=== PATIENT | female | born 2005 | race Caucasian/White ===

== ENCOUNTER → 2023-02-13 14:01 | Outpatient (CLI) | payer BC, SELFPAY ==
[2023-02-13 14:30] LABS: Basophils % 0.6 % (0.1-2.0); Eosinophils # 0.1 K/mm3 (0.0-0.4); Eosinophils % 2.2 % (0.1-12.0); Hematocrit 36.6 % (37.0-47.0); Hemoglobin 12.5 g/dL (12.2-16.2); Lymphocytes # 1.8 K/mm3 (0.7-4.5); Lymphocytes % 33.7 % (10-50); Mean Corpuscular HGB Conc 34.1 g/dL (31.8-35.4); Mean Corpuscular Hemoglobin 25.5 pg (27.0-31.2); Mean Corpuscular Volume 74.9 fl (81-99); Mean Platelet Volume 7.3 fl (7.4-10.4); Monocytes # 0.3 K/mm3 (0.1-1.0); Monocytes % 5.9 % (1.7-9.3); Neutrophils % 57.6 % (37.0-80.0); Platelet Count 430 K/mm3 (142-424); Red Blood Count 4.89 M/mm3 (4.20-5.40); White Blood Count 5.2 K/mm3 (4.5-13.0)
[2023-02-13 16:39] LABS: Thyroid Stimulating Hormone 0.48 uIU/mL (0.465-4.68)
== END ==
PROVIDERS: PCP Family Medicine; Visit Provider Obstetrics & Gynecology
DX: N93.9 Abnormal uterine and vaginal bleeding, unspecified (principal)
CPT/HCPCS: 36415; 84443; 85025

== ENCOUNTER 2024-02-09 09:46 | Emergency (ER) | payer BC, SELFPAY ==
[2024-02-09 09:47] VITALS: BP 119/85; PULSE 80; RESP 18; TEMP 37.1; O2SAT 99; BMI 40.7
--- NOTE | 2024-02-09 10:08 | HMH.EDGENADL ---
Discharge Plan Disposition Patient Disposition: Home, Self-Care Condition: Good Prescriptions Prescriptions: New ketorolac 10 mg tablet 10 mg PO Q8H PRN (Reason: pain) 5 Days Qty: 10 0RF No Action albuterol sulfate 90 mcg/actuation HFA aerosol inhaler 2 puff inhalation Q6H PRN Tyblume 0.1 mg- 20 mcg tablet,chewable 1 tab PO DAILY Qty: 84 3RF Referrals Follow up/Referrals: Rod Domingo [Primary Care Provider] - See instructions Activity Restrictions/Add. Instructions Additional Instructions/Restrictions: As we discussed, it appears that your pain, based on the ultrasound imaging, is due to a ovarian cyst on your left side. That is likely, based on the ultrasound, functional in nature remaining is simply related to your menstrual cycle. If this pain persists, changes in character, does not resolve, please return to the emergency department. Please return with any other new or worsening symptoms. Clinical Impressions Clinical Impression: Ovarian cyst Instructions Patient Instructions: DI for Acute Abdominal Pain Print Language Print Language: American Discharge ED Provider: Renard Boswell Adult HPI General Chief complaint: Abdominal Pain Stated complaint: abd cramps, back pain Time Seen by Provider: 02/09/24 10:07 Mode of Arrival: Ambulatory Source of Information: Patient Limitations: No Limitations Description of Symptoms (Recalled from ER Triage Doc. by RN): pt is here today for lower abd pain that started this morning, pt complains of nausea but denies any urinary or bowel mvmt issues. pt started her period on monday and has hx of ovarian cyst but hasnt had abd surgeries History of Present Illness HPI narrative: The patient presents with a chief complaint of abdominal pain and back pain. The back pain has been present for three days, and the abdominal pain started this morning on the left side, eventually spreading to the entire lower abdomen. The pain is constant and worsens when sitting. The patient has not experienced this type of pain before. The back pain is primarily located in the lower middle back and spreads to the hip. The abdominal pain is more severe on the left side. The patient reports having chills but is unsure about having a fever. She also feels nauseous but has not experienced any vomiting. The patient denies any pain with urination or bowel movements. She had severe cramps yesterday, which she attributes to her period, which started on Monday or Monday. The patient is currently bleeding due to her period. The pain became particularly intense when the patient got out of bed and sat down to drive. The patient has found a specific sitting position that minimizes the pain. There is no pain spreading down the legs beyond the hip area. The patient has a history of ovarian cysts but states that the current pain is more severe than previous episodes. She has not had any kidney stones or family history of kidney stones. The patient is on control pills and does not take any other medications. Please note that above description of symptoms, in this electronic medical record under categorization of recalled from ER triage doctor by RN are reflective of an initial nursing assessment, however, is not reflective of my full history and physical exam that was personally taken and clarified. Consequentially, this preceding description of symptoms, which may include the patient's categorized chief complaint in the EMR, do not reflect my personal clinical impression, and the ultimate description of history of present illness and patient stated complaints should be deferred to this section of the note. Unless stated otherwise or congruent with this section of the note, additional signs, symptoms, or incongruence should be interpreted as inaccurate with my clinical impression. Related Data Home Medications ?Medication ?Instructions ?Recorded ?Confirmed albuterol sulfate 90 mcg/actuation 2 puff inhalation Q6H PRN 02/13/23 02/13/23 aerosol inhaler Previous Rx's ?Medication ?Instructions ?Recorded levonorgestrel 0.1 mg-ethinyl 1 tab PO DAILY #84 tabs 05/10/23 estradiol 20 mcg chewable tablet (Tyblume) ketorolac 10 mg tablet 10 mg PO Q8H PRN pain 5 days #10 02/09/24 tabs Allergies Allergy/AdvReac Type Severity Reaction Status Date / Time azithromycin (From ZITHROMAX) Allergy Mild I-HIVES Verified 02/09/24 11:26 [facility] Disclaimer: The information contained in this section may have been updated after the patient was seen, as this information can be updated by other users. Medical History Abnormal uterine bleeding Dysmenorrhea Menorrhagia Right wrist injury Surgical History History of tonsillectomy and adenoidectomy Family History Other FHx: mental illness Social History Smoking Status: Current every day smoker alcohol intake: never substance use type: denies use current occupational status: employed Travel in the last 8 weeks: None ROS Obtained: Yes other As per HPI Physical Exam General General appearance: alert and in no apparent distress Head Head exam: atraumatic and normocephalic Eye Eye exam: Present normal appearance Neck Neck exam: Present normal inspection Chest Chest inspection: Present normal inspection and symmetric chest wall rise Respiratory Respiratory exam: Present normal lung sounds bilaterally; Absent respiratory distress Cardiovascular Cardiovascular exam: Present regular rate and normal rhythm Abdominal Exam Abdominal exam: Present soft Neurological Exam Neurological exam: Present alert and oriented X3 Psychiatric Psychiatric exam: Present normal affect and normal mood Skin Skin exam: Present warm and dry Other Other exam information: No focal abdominal tenderness to palpation Medical Decision Making Medical Records Medical records reviewed: Yes I reviewed the patient's medical records. Screening: Per USPSTF and CDC recommendations, given the prevalence of disease in our region, it is our hospital?s policy to screen for HIV and viral Hepatitis for all patients aged 18 and over and those with ongoing risk factors. [place] Inquiry Pt receiving controlled substance: No Vital Signs: 02/09/24 09:47 02/09/24 11:30 02/09/24 12:00 Temperature 98.8 F Temperature Source Oral Pulse Rate 69 83 Pulse Rate [Right Radial] 80 Respiratory Rate 18 Blood Pressure 149/99 H 143/73 H Blood Pressure [Right Arm] 119/85 Blood Pressure Mean Blood Pressure Mean [Right Arm] 96 Blood Pressure Source Blood Pressure Position 02 Sat by Pulse Oximetry 99 98 98 Oxygen Delivery Method Room Air 02/09/24 12:30 02/09/24 13:07 Temperature 98.8 F Temperature Source Oral Pulse Rate 63 63 Pulse Rate [Right Radial] Respiratory Rate 18 Blood Pressure 130/62 130/62 Blood Pressure [Right Arm] Blood Pressure Mean 87 Blood Pressure Mean [Right Arm] Blood Pressure Source Automatic Cuff Blood Pressure Position Sitting 02 Sat by Pulse Oximetry 98 Oxygen Delivery Method Room Air Lab Data Lab Results 02/09/24 09:58: WBC 6.7, RBC 5.21, Hgb 14.2, Hct 41.8, MCV 80.3 L, MCH 27.3, MCHC 33.9, RDW 14.3, Plt Count 404, MPV 7.4, Neut % (Auto) 70.9, Lymph % (Auto) 21.0, Orange % (Auto) 4.4, Eos % (Auto) 2.7, Baso % (Auto) 0.9, Neut # (Auto) 4.7, Lymph # (Auto) 1.4, Orange # (Auto) 0.3, Eos # (Auto) 0.2, Baso # (Auto) 0.1, Sodium 139, Potassium 4.1, Chloride 106, Carbon Dioxide 22, Anion Gap 15.1 H, BUN 11, Creatinine 0.70, Estimated Creat Clear 211, Estimated GFR 107, Est GFR ( Amer) 129, Glucose 123 H, Calcium 9.3, Total Bilirubin 0.9, AST 31, ALT 33, Alkaline Phosphatase 48, Total Protein 7.7, Albumin 4.5, Globulin 3.2, Albumin/Globulin Ratio 1.4, TSH 0.89, Free T4 0.86, Serum HCG, Qual Negative, Urine Color [place], Urine Appearance Cloudy, Urine pH 6.5, Ur Specific [place] 1.015, Urine Protein Negative, Urine Glucose (UA) Negative, Urine Ketones Negative, Urine Blood 3+ A, Urine Nitrate Negative, Urine Bilirubin 1+ A, Urine Urobilinogen 0.2, Ur Leukocyte Esterase Trace, Urine RBC 50-100, Urine WBC Occasional, Ur Squamous Epith Cells 3-5, Urine Bacteria None 02/09/24 09:58 02/09/24 09:58 Orders (Tests/Meds): ED MEDICATIONS Discontinued Medications Generic Name Dose Route Start Last Admin Trade Name Freq PRN Reason Stop Dose Admin Ketorolac Tromethamine 15 mg 02/09/24 10:19 02/09/24 11:26 Ketorolac 30mg/Ml Vial IV 02/09/24 10:20 15 mg ONCE ONE Administration Sodium Chloride 10 ml 02/09/24 10:18 Sodium Chloride 0.9% 10ml Flush Syringe IV 03/10/24 10:17 NEEDED PRN Maintain IV Site ORDERS Category Date Time Status US transvaginal Stat Exams 02/09/24 10:19 Completed CBC w/Auto Diff [Complete Blood Count Auto Diff] Stat Lab 02/09/24 09:58 Completed CMP [Comprehensive Metabolic Panel] Stat Lab 02/09/24 09:58 Completed Free T4 (Free Thyroxine) Stat Lab 02/09/24 09:58 Completed HCG Qualitative, Serum Stat Lab 02/09/24 09:58 Completed TSH [Thyroid Stimulating Hormone] Stat Lab 02/09/24 09:58 Completed Urinalysis and Microscopic Stat Lab 02/09/24 09:58 Completed Medical Decision Narrative: Patient with history and exam per above presenting for evaluation of abdominal pain, dysuria Diagnoses considered include cystitis, pyelonephritis, urolithiasis, no acute evidence of acute surgical abdominal pathology at this time. ED workup and treatment included: ED MEDICATIONS Discontinued Medications Generic Name Dose Route Start Last Admin Trade Name Freq PRN Reason Stop Dose Admin Ketorolac Tromethamine 15 mg 02/09/24 10:19 02/09/24 11:26 Ketorolac 30mg/Ml Vial IV 02/09/24 10:20 15 mg ONCE ONE Administration Sodium Chloride 10 ml 02/09/24 10:18 Sodium Chloride 0.9% 10ml Flush Syringe IV 03/10/24 10:17 NEEDED PRN Maintain IV Site ORDERS Category Date Time Status US transvaginal Stat Exams 02/09/24 10:19 Completed CBC w/Auto Diff [Complete Blood Count Auto Diff] Stat Lab 02/09/24 09:58 Completed CMP [Comprehensive Metabolic Panel] Stat Lab 02/09/24 09:58 Completed Free T4 (Free Thyroxine) Stat Lab 02/09/24 09:58 Completed HCG Qualitative, Serum Stat Lab 02/09/24 09:58 Completed TSH [Thyroid Stimulating Hormone] Stat Lab 02/09/24 09:58 Completed Urinalysis and Microscopic Stat Lab 02/09/24 09:58 Completed Labs were independently interpreted by me, significant for hematuria, no bacteriuria, occasional pyuria [id number] ultrasound performed revealing no hydronephrosis bilaterally. Patient reports improvement symptoms upon repeat evaluation. After shared decision making we will not proceed with any further workup at this time, low posttest probability of significant urolithiasis if that is etiology precipitating chief complaint today. I discussed my clinical impression with patient and answered all questions. At this time, the evidence for any other entities in the differential is insufficient to warrant any further testing or ED observation. This was explained to the patient. The patient was advised that persistent or worsening symptoms require further evaluation. Critical Care Critical Care Time Critical Care Time: No
--- NOTE | 2024-02-09 10:19 | US_ITS ---
PROCEDURE INFORMATION: Exam: US Pelvis, Transvaginal, Non-Obstetric Exam date and time: 02/09/2024 10:57 AM Age: 18 years old Clinical indication: Pelvic pain; Additional info: L sides lower abd pain, vaginal bleeding TECHNIQUE: Imaging protocol: Real-time transvaginal pelvic (non-obstetric) ultrasound with image documentation. Transvaginal imaging was used for better evaluation of the endometrium, adnexa, and/or cervix. COMPARISON: No relevant prior studies available. FINDINGS: Uterus is anteverted and unremarkable overall size, contour measuring 7.8 x 4.2 x 5.0 cm. No uterine masses or textural changes within the myometrium. Endometrium is homogeneous mildly thickened measuring 1.2 cm in thickness. Cervix is unremarkable. Right ovary is unremarkable measuring 2.7 x 2.3 x 1.4 cm. Normal Doppler flow.. No adnexal mass. Left ovary is not significantly enlarged measuring 3.1 x 3.2 x 2.5 cm. 2.0 x 1.8 cm mildly complex cystic structure that appears to be arising from the left ovary HD patient status probably functional in nature. Normal Doppler flow. No free fluid seen in the cul-de-sac. IMPRESSION: 1. Mildly thickened endometrial lining is otherwise unremarkable in appearance. 2. 2.1 cm mildly complex left ovarian cyst presumably functional in nature.
[2024-02-09 10:26] LABS: Microscopic, Urine URINE MICROSCOPIC (MICROSCOPIC)
[2024-02-09 10:30] LABS: Basophils # 0.1 K/mm3 (0-0.2); Basophils % 0.9 % (0.1-2.0); Eosinophils # 0.2 K/mm3 (0.0-0.4); Eosinophils % 2.7 % (0.1-12.0); Hematocrit 41.8 % (37.0-47.0); Hemoglobin 14.2 g/dL (12.2-16.2); Lymphocytes # 1.4 K/mm3 (0.7-4.5); Mean Corpuscular HGB Conc 33.9 g/dL (31.8-35.4); Mean Corpuscular Hemoglobin 27.3 pg (27.0-31.2); Mean Corpuscular Volume 80.3 fl (81-99); Mean Platelet Volume 7.4 fl (7.4-10.4); Monocytes # 0.3 K/mm3 (0.1-1.0); Monocytes % 4.4 % (1.7-9.3); Neutrophils # 4.7 K/mm3 (1.8-7.8); Neutrophils % 70.9 % (37.0-80.0); Platelet Count 404 K/mm3 (142-424); Red Blood Count 5.21 M/mm3 (4.20-5.40); Red Cell Distribution Width 14.3 % (11.5-17.5); White Blood Count 6.7 K/mm3 (4.5-13.0)
[2024-02-09 10:36] LABS: HCG Qualitative, Serum Negative (Negative)
[2024-02-09 10:50] LABS: Albumin Level 4.5 g/dl (3.5-5.0); Appearance,Urine CLOUDY (Clear); Blood, Urine 3+ (Negative); Chloride 106 mmol/L (98-107); Color,Urine ORANGE (Yellow); Glucose,Urine (UA) Negative (Negative); Ketones,Urine Negative (Negative); Leukocyte Esterase,Urine TRACE (Negative); Nitrate,Urine Negative (Negative); PH,Urine 6.5 (5.0-8.5); Potassium 4.1 mmoL/L (3.5-5.1); Protein,Urine Negative (Negative); Sodium 139 mmol/L (136-145); Specific Gravity, Urine 1.015 (1.005-1.030); Urobilinogen,Urine 0.2 EU/dl (0.2)
[2024-02-09 10:53] LABS: Alanine Aminotransferase 33 U/L (12-78); Albumin/Globulin Ratio 1.4 (1.1-1.8); Alkaline Phosphatase 48 U/L (38-126); Anion Gap 15.1 mEq/L (5-15); Aspartate Amino Transferase 31 U/L (14-36); Bilirubin,Total 0.9 mg/dl (0.2-1.3); Blood Urea Nitrogen 11 mg/dl (7-17); Calcium 9.3 mg/dl (8.4-10.2); Carbon Dioxide 22 mmol/L (22.0-30.0); Creatinine Clearance Estimated 211 mL/min (50-200); Estimated Glomerular Filt Rate 107 ml/min (>60); GFR (African American) 129 ML/MIN (>60); Globulin 3.2 g/dL (1.3-3.2); Glucose 123 mg/dl (74-100); Total Protein,Serum 7.7 g/dl (6.3-8.2)
[2024-02-09 10:54] LABS: Bilirubin,Urine 1+ (Negative)
[2024-02-09 11:11] LABS: Free T4 (Free Thyroxine) 0.86 ng/dl (0.78-2.19)
[2024-02-09 11:19] LABS: RBC,Urine 50-100 #/hpf (0-3); WBC,Urine Occasional #/hpf (0-3)
[2024-02-09 11:24] LABS: Thyroid Stimulating Hormone 0.89 uIU/mL (0.465-4.68)
[2024-02-09] MEDS: KETOROLAC 30MG/ML VIAL 15 MG IV (11:26)
[2024-02-09 11:30] VITALS: BP 149/99; PULSE 69; O2SAT 98
[2024-02-09 12:00] VITALS: BP 143/73; PULSE 83; O2SAT 98
[2024-02-09 12:30] VITALS: BP 130/62; PULSE 63; O2SAT 98
[2024-02-09 13:07] VITALS: BP 130/62; PULSE 63; RESP 18; TEMP 37.1; O2SAT 98
== END 2024-02-09 13:08 | disposition home or self-care (01) ==
PROVIDERS: Emergency Provider Emergency Medicine; PCP Internal Medicine Cardiovascular Disease
DX: N83.202 Unspecified ovarian cyst, left side (principal)
CPT/HCPCS: 76830; 80050; 80053; 81001; 84439; 84443; 84703; 85025; 96374; 99284; J1885